=== PATIENT | female | born 1980 | race Caucasian/White ===

== ENCOUNTER 2016-06-18 14:33 | Emergency (ER) | payer MEDICAID ==
[2016-06-18 14:54] VITALS: BP 145/78
--- NOTE | 2016-06-18 15:14 | EDM.PDOC ---
ED HPI GI/ABDOMINAL - General Chief Complaint: Genitourinary Problem Stated Complaint: FLU SYMPTOMS Time Seen by Provider: 06/18/16 14:59 Source: Reports: Patient, RN notes reviewed History Limitations: Reports: No limitations - History of Present Illness INITIAL COMMENTS - FREE TEXT/NARRATIVE: History of present illness: [35-year-old female presenting with symptoms consistent with a viral gastroenteritis. Her daughter had the same thing and it cleared up in 24 hours. She developed nausea vomiting and diarrhea the nausea has cleared up but she's continuing to have diarrhea this started 24 hours ago. She ambulated comfortably into the ER with her 2 daughters and appears well. She has had no fevers and no blood in her stool] Review of systems: As per history of present illness and below otherwise all systems reviewed and negative. Past medical history: As per history of present illness and as reviewed below otherwise noncontributory. Surgical history: As per history of present illness and as reviewed below otherwise noncontributory. Social history: No reported history of drug or alcohol abuse. Family history: As per history of present illness and as reviewed below otherwise noncontributory. Physical exam: HEENT: Atraumatic, normocephalic, pupils reactive, negative for conjunctival pallor or scleral icterus, mucous membranes moist, throat clear, neck supple, nontender, trachea midline. Lungs: Clear to auscultation, breath sounds equal bilaterally, chest nontender. Heart: S1S2, regular, negative for clicks, rubs, or JVD. Abdomen: Soft, nondistended, nontender. Negative for masses or hepatosplenomegaly. Negative for costovertebral tenderness. Extremities: Atraumatic, negative for cords or calf pain. Neurovascular unremarkable. Neuro: Awake, alert, oriented. Exam nonfocal. Diagnostics: [] Therapeutics: [] Impression: [Gastroenteritis] Plan: [We're providing her with Zofran 4 mg ODT one sublingual every 4 hours when necessary nausea #10 no refills. Other home measures were discussed] Definitive disposition and diagnosis as appropriate pending reevaluation and review of above. - Related Data Allergies/ADRs: Allergies Allergy/AdvReac Type Severity Reaction Status Date / Time No Known Allergies Allergy Verified 11/15/15 08:45 Home Meds: Home Meds Ibuprofen 800 mg PO TID PRN 06/04/15 [History] Past Medical History - Past Health History Medical/Surgical History: Denies Medical/Surgical History HEENT History: Reports: Impaired vision Other HEENT History: Dental abscess [facility] History: Reports: Musculoskeletal History: Reports: Other (see below) Other Musculoskeletal History: scoliosis - Past Surgical History Female Surgical History: Reports: Tubal ligation Social & Family History - Family History Endocrine/Metabolic: Reports: Diabetes, type II - Tobacco Use Smoking Status *Q: Current Every Day Smoker Years of Tobacco use: 10 Packs/Tins Daily: 0.5 Used Tobacco, but Quit: No - Alcohol Use Days Per Week of Alcohol Use: 1 Number of Drinks Per Day: 6 Total Drinks Per Week: 6 - Recreational Drug Use Recreational Drug Use: No ED ROS GENERAL - Review of Systems Review Of Systems: ROS reveals no pertinent complaints other than HPI. ED EXAM, GI/ABD - Physical Exam Exam: See Below Course - Vital Signs Last Recorded V/S: Last Vital Signs Temp 37.3 C 06/18/16 14:52 Pulse 103 H 06/18/16 14:52 Resp 14 06/18/16 14:52 BP 145/78 H 06/18/16 14:52 Pulse Ox 96 06/18/16 14:52 Departure - Departure Time of Disposition: 15:13 Disposition: Home, Self-Care 01 Condition: good Clinical Impression: Gastroenteritis Forms: ED Department Discharge Additional Instructions: Please followup with your doctor in 3-4 days if you have not improved
== END 2016-06-18 15:32 | disposition home or self-care (01) ==
LOC: JP.ED 14:33
DX: K52.9 Noninfective gastroenteritis and colitis, unspecified (principal); F17.210 Nicotine dependence, cigarettes, uncomplicated; Z98.51 Tubal ligation status
CPT/HCPCS: 99283; 99284

== ENCOUNTER 2017-11-28 19:00 | Emergency (ER) | payer MEDICAID ==
[2017-11-28 19:19] VITALS: BP 117/73
[2017-11-28] MEDS ORDERED: Sodium Chloride 0.9% 1,000 ML IV ONE (20:01)
[2017-11-28] MEDS ORDERED: Sodium Chloride 0.9% 10 ML Syringe FLUSH PRN (20:01)
[2017-11-28] MEDS ORDERED: Ondansetron 4 MG/2 ML SDV IVPUSH ONE (20:01)
--- NOTE | 2017-11-28 22:03 | EDM.PDOC ---
ED HPI GENERAL MEDICAL PROBLEM - General Chief Complaint: General Stated Complaint: FEVER, BODY ACHES, SEVERE STOMACH PAIN Time Seen by Provider: 11/28/17 19:46 Source of Information: Reports: Patient History Limitations: Reports: No Limitations - History of Present Illness INITIAL COMMENTS - FREE TEXT/NARRATIVE: She complains of body aches for 3 days. Seen in [place] yesterday and told she had a viral illness. Had temp to 103 2 days ago. Afeb today. Nauseated but no vomiting. Normal bm today. Gets epigastric burning whenever she eats or drinks so she's had little po. Today she had an episode where she thought she would black oout when up walking. Hasn't tried any AA's or H2 hugh. Works at [employer] New crops coming in and lots of mold. Several workers out sick. general body aches Pain Score (Numeric/FACES): 3 - Related Data Allergies Allergy/AdvReac Type Severity Reaction Status Date / Time No Known Allergies Allergy Verified 11/28/17 19:22 Home Meds: Home Meds Ibuprofen 800 mg PO TID PRN 06/04/15 [History] Acetaminophen [Tylenol Extra Strength] 1,000 mg PO ASDIRECTED 11/28/17 [History] Past Medical History - Past Health History Medical/Surgical History: Denies Medical/Surgical History HEENT History: Reports: Impaired Vision Other HEENT History: Dental abscess [employer] History: Reports: Musculoskeletal History: Reports: Back Pain, Chronic, Other (See Below) Other Musculoskeletal History: scoliosis - Infectious Disease History Infectious Disease History: Reports: Chicken Pox - Past Surgical History Female Surgical History: Reports: Tubal Ligation Neurological Surgical History: Reports: Scoliosis Social & Family History - Family History Endocrine/Metabolic: Reports: Diabetes, type II - Tobacco Use Smoking Status *Q: Current Every Day Smoker Years of Tobacco use: 18 Packs/Tins Daily: 1 - Caffeine Use Caffeine Use: Reports: Coffee, Energy Drinks, Soda, Tea - Recreational Drug Use Recreational Drug Use: No ED ROS GENERAL - Review of Systems Review Of Systems: See Below Constitutional: Reports: Fever, Chills HEENT: Reports: No Symptoms Respiratory: Reports: No Symptoms Cardiovascular: Reports: No Symptoms Endocrine: Reports: No Symptoms GI/Abdominal: Reports: Abdominal Pain, Nausea. Denies: Vomiting : Reports: No Symptoms Musculoskeletal: Reports: Muscle Pain Skin: Reports: Other (Mom hernando she had rash to one side of face) Neurological: Reports: No Symptoms Psychiatric: Reports: No Symptoms Hematologic/Lymphatic: Reports: No Symptoms Immunologic: Reports: No Symptoms ED EXAM, GENERAL - Physical Exam Exam: See Below Exam Limited By: No Limitations General Appearance: Alert, WD/WN, Mild Distress Eye Exam: Bilateral Eye: EOMI, PERRL Ears: Normal TMs Throat/Mouth: Normal Oropharynx Head: Atraumatic Neck: Supple Respiratory/Chest: Lungs Clear Cardiovascular: Regular Rate, Rhythm, No Murmur GI/Abdominal: Soft, Non-Tender Back Exam: Normal Inspection Extremities: Normal Inspection Neurological: Alert, Oriented Psychiatric: Normal Affect Skin Exam: Warm, Dry Course - Vital Signs Last Recorded V/S: Last Vital Signs Temp 36.8 C 11/28/17 19:24 Pulse 78 11/28/17 19:24 Resp 12 11/28/17 19:24 BP 117/73 11/28/17 19:24 Pulse Ox 97 11/28/17 19:24 - Orders/Labs/Meds Orders: Active Orders 24 hr Category Date Time Status Chest 2V [CR] Urgent Exams 11/28/17 20:00 Taken UA W/MICROSCOPIC [URIN] Urgent Lab 11/28/17 21:01 Ordered Saline Lock Insert [OM.PC] Urgent Oth 11/28/17 20:01 Ordered Labs: Laboratory Tests 11/28/17 11/28/17 11/28/17 Range/Units 20:00 20:00 21:01 WBC 10.5 (4.5-11.0) K/uL RBC 4.73 (3.30-5.50) M/uL Hgb 13.6 (12.0-15.0) g/dL Hct 40.8 (36.0-48.0) % MCV 86 (80-98) fL MCH 29 (27-31) pg MCHC 33 (32-36) % Plt Count 283 (150-400) K/uL Neut % (Auto) 60 (36-66) % Lymph % (Auto) 31 (24-44) % [place] % (Auto) 6 (2-6) % Eos % (Auto) 3 (2-4) % Baso % (Auto) 0 (0-1) % Sodium 137 L (140-148) mmol/L Potassium 3.9 (3.6-5.2) mmol/L Chloride 103 (100-108) mmol/L Carbon Dioxide 24 (21-32) mmol/L Anion Gap 13.9 (5.0-14.0) mmol/L BUN 14 (7-18) mg/dL Creatinine 0.8 (0.6-1.0) mg/dL Est Cr Clr Drug Dosing 106.14 mL/min Estimated GFR (MDRD) > 60 (>60) Glucose 98 (74-106) mg/dL Calcium 8.7 (8.5-10.1) mg/dL Total Bilirubin 0.4 (0.2-1.0) mg/dL AST 31 (15-37) U/L ALT 34 (12-78) U/L Alkaline Phosphatase 89 (46-116) U/L Total Protein 7.4 (6.4-8.2) g/dL Albumin 3.3 L (3.4-5.0) g/dL Globulin 4.1 H (2.3-3.5) g/dL Albumin/Globulin Ratio 0.8 L (1.2-2.2) Urine Color Yellow Urine Appearance Clear Urine pH 5.0 (4.5-8.0) Ur Specific [place] 1.020 (1.008-1.030) Urine Protein Negative (NEGATIVE) mg/dL Urine Glucose (UA) Normal (NEGATIVE) mg/dL Urine Ketones Negative (NEGATIVE) mg/dL Urine Occult Blood Negative (NEGATIVE) Urine Nitrite Negative (NEGATIVE) Urine Bilirubin Negative (NEGATIVE) Urine Urobilinogen 1 (NORMAL) mg/dL Ur Leukocyte Esterase Negative (NEGATIVE) Urine RBC 0-5 (0-5) Urine WBC 0-5 (0-5) Ur Epithelial Cells Few Amorphous Sediment Not seen Urine Bacteria Moderate Urine Mucus Few Meds: Medications Discontinued Medications Generic Name Dose Route Start Last Admin Trade Name Freq PRN Reason Stop Dose Admin Sodium Chloride 1,000 mls @ 999 mls/hr 11/28/17 20:01 11/28/17 20:38 Normal Saline IV 11/28/17 21:01 999 mls/hr .BOLUS ONE Administration Ondansetron HCl 4 mg 11/28/17 20:01 11/28/17 20:41 Zofran IVPUSH 11/28/17 20:02 4 mg ONETIME ONE Administration Sodium Chloride 10 ml 11/28/17 20:01 11/28/17 20:38 Saline Flush FLUSH 10 ml ASDIRECTED PRN Administration Keep Vein Open - Radiology Interpretation Free Text/Narrative:: CXR normal heart size and normal lung markings. - Re-Assessments/Exams Free Text/Narrative Re-Assessment/Exam: 11/28/17 23:18 Gave 1 liter iv NS and 4 mg Zofran iv. Feels oonly a little better. Departure - Departure Time of Disposition: 22:00 Disposition: Home, Self-Care 01 Condition: Fair Clinical Impression: Viral gastroenteritis - Discharge Information Instructions: Viral Gastroenteritis, Child Referrals: PCP,None [Primary Care Provider] - Forms: ED Department Discharge Additional Instructions: Clear liquid diet for next 24 hours then gradually advance diet. For nausea use Zofran 4 mg sublingual every 8 hours Try an antacid such as TUMS Maalox or Mylanta. You may also try one of the acid blocking medications. The best is omeprazole 20 mg/day. You should only need it a few days. - My Orders Last 24 Hours: My Active Orders 11/28/17 20:00 Chest 2V [CR] Urgent 11/28/17 20:01 Saline Lock Insert [OM.PC] Urgent 11/28/17 21:01 UA W/MICROSCOPIC [URIN] Urgent - Assessment/Plan Last 24 Hours: My Active Orders 11/28/17 20:00 Chest 2V [CR] Urgent 11/28/17 20:01 Saline Lock Insert [OM.PC] Urgent 11/28/17 21:01 UA W/MICROSCOPIC [URIN] Urgent
--- NOTE | 2017-11-29 08:30 | CR ---
CHEST: 2 view CLINICAL HISTORY:Fever COMPARISON:2010 FINDINGS: Heart size and pulmonary vascularity are normal. No infiltrate effusion or pneumothorax is seen. Impression: No acute pulmonary process or significant change from prior study.
== END 2017-11-28 22:16 | disposition home or self-care (01) ==
LOC: JP.ED 19:00
DX: A08.4 Viral intestinal infection, unspecified (principal); F17.210 Nicotine dependence, cigarettes, uncomplicated
CPT/HCPCS: 36415; 71046; 80053; 81001; 85025; 96361; 96374; 99284; J2405; J7030; J7050

== ENCOUNTER 2020-05-24 17:16 | Emergency (ER) | payer MEDICAID ==
[2020-05-24 17:32] VITALS: BP 103/70; PULSE 100
[2020-05-24] MEDS ORDERED: Magnesium Citrate Solution 296 ML Bottle PO ONE ×2 (18:14→19:00)
--- NOTE | 2020-05-24 18:16 | EDM.PDOC ---
ED HPI GENERAL MEDICAL PROBLEM - General Chief Complaint: Abdominal Pain Stated Complaint: ABD PAIN/CONSTIPATION X7 DAYS Time Seen by Provider: 05/24/20 18:15 Source of Information: Reports: Patient, Family History Limitations: Reports: No Limitations - History of Present Illness INITIAL COMMENTS - FREE TEXT/NARRATIVE: pt has not had a bm for 1 week. She is very uncomfortable. Onset: Gradual Duration: Day(s): Location: Reports: Abdomen Associated Symptoms: Reports: Other (pt feels distended and quite uncomfortable. ) Abdomen Pain Score (Numeric/FACES): 8 - Related Data Allergies Allergy/AdvReac Type Severity Reaction Status Date / Time No Known Allergies Allergy Verified 11/28/17 19:22 Home Meds: Home Meds Ibuprofen 800 mg PO TID PRN 06/04/15 [History] Acetaminophen [Tylenol Extra Strength] 1,000 mg PO ASDIRECTED 11/28/17 [History] Hydrocodone/Acetaminophen [Hydrocodon-Acetaminophn 10-325] 1 tab PO Q4H PRN 05/24/20 [History] tiZANidine [Zanaflex] 4 mg PO BEDTIME 05/24/20 [History] Past Medical History - Past Health History Medical/Surgical History: Denies Medical/Surgical History HEENT History: Reports: Impaired Vision Other HEENT History: Dental abscess [employer] History: Reports: Musculoskeletal History: Reports: Back Pain, Chronic, Other (See Below) Other Musculoskeletal History: scoliosis - Infectious Disease History Infectious Disease History: Reports: Chicken Pox - Past Surgical History Female Surgical History: Reports: Tubal Ligation Neurological Surgical History: Reports: Scoliosis Social & Family History - Family History Endocrine/Metabolic: Reports: Diabetes, type II - Tobacco Use Tobacco Use Status *Q: Current Every Day Tobacco User Years of Tobacco use: 20 Packs/Tins Daily: 0.5 - Caffeine Use Caffeine Use: Reports: Coffee, Soda, Tea - Recreational Drug Use Recreational Drug Use: No ED ROS GENERAL - Review of Systems Review Of Systems: See Below Constitutional: Reports: No Symptoms, Decreased Appetite HEENT: Reports: No Symptoms Respiratory: Reports: No Symptoms Cardiovascular: Reports: No Symptoms Endocrine: Reports: No Symptoms GI/Abdominal: Reports: Abdominal Pain, Constipation, Other (pt has not had a bm for the past week. ) : Reports: No Symptoms Musculoskeletal: Reports: No Symptoms Skin: Reports: No Symptoms ED EXAM, GI/ABD - Physical Exam Exam: See Below Text/Narrative:: pt arrived with abdomanal pain and constipation Exam Limited By: No Limitations General Appearance: Alert, Anxious, Moderate Distress, Other (pt has not had a bm for 1 week. ) Ears: Normal TMs Nose: Normal Inspection Throat/Mouth: Normal Inspection Head: Atraumatic Neck: Normal Inspection Respiratory/Chest: No Respiratory Distress Cardiovascular: Regular Rate, Rhythm GI/Abdominal Exam: Tender, Other ( diffuse tenderness. ) (Female) Exam: Deferred Rectal (Female) Exam: Deferred Back Exam: Normal Inspection Extremities: Normal Inspection Neurological: Alert, Oriented, Normal Cognition Course - Vital Signs Last Recorded V/S: Last Vital Signs Temp 37.3 C 05/24/20 17:33 Pulse 100 05/24/20 17:33 Resp 16 05/24/20 17:33 BP 103/70 05/24/20 17:33 Pulse Ox 98 05/24/20 17:33 - Orders/Labs/Meds Meds: Medications Discontinued Medications Generic Name Dose Route Start Last Admin Trade Name Freq PRN Reason Stop Dose Admin Magnesium Citrate 296 ml 05/24/20 18:14 05/24/20 18:23 Citrate Of Magnesia PO 05/24/20 18:15 296 ml ONETIME ONE Administration Magnesium Citrate 296 ml 05/24/20 19:00 05/24/20 19:28 Citrate Of Magnesia PO 05/24/20 19:01 296 ml ONETIME ONE Administration - Re-Assessments/Exams Free Text/Narrative Re-Assessment/Exam: 05/24/20 20:36 pt was given 1.5 bottles of mag citrate. She had about 5 stools while here soft. flat and upright of the abdoman did not show any unsual gas pattern. 05/25/20 01:13 Departure - Departure Time of Disposition: 20:29 Disposition: Home, Self-Care 01 Condition: Fair Clinical Impression: Constipation - Discharge Information Instructions: Constipation, Adult, [id number] Referrals: PCP,None [Primary Care Provider] - Forms: ED Department Discharge Care Plan Goals: high fiber diet, daily prunes, colace 100mg bid, push fluids. no work tomorow, use the other bottle of mag citrate at home if she feels thzt she is slowing down tomorrow. Sepsis Event Note (ED) - Evaluation Sepsis Screening Result: No Definite Risk - Focused Exam Vital Signs: Vital Signs Temp Pulse Resp BP Pulse Ox 05/24/20 17:33 37.3 C 100 16 103/70 98 05/24/20 17:31 37.3 C 100 16 103/70 98
--- NOTE | 2020-05-24 19:42 | CRLCR ---
INDICATION: Constipation. TECHNIQUE: PA chest with flat and upright views of the abdomen and pelvis. FINDINGS: Clear lungs. Normal heart size and pulmonary vascularity. No free air on the upright image. Air and fluid are identified within the colon. There is no bowel obstruction or ileus. Postsurgical changes in the pelvis from tubal ligation. No radiodense urinary tract calculi. IMPRESSION: 1. No acute cardiopulmonary process identified. 2. No acute abdominopelvic process identified. 3. Nonspecific bowel gas pattern. Dictated by Buddy Galeas MD @ May 24 2020 7:38PM Signed by Dr. Buddy Galeas @ May 24 2020 7:40PM
== END 2020-05-24 20:54 | disposition home or self-care (01) ==
LOC: JP.ED 17:16
DX: K59.00 Constipation, unspecified (principal); Z72.0 Tobacco use
CPT/HCPCS: 74022; 99283; A9270